=== PATIENT | female | born 1955 | race Caucasian/White ===

== ENCOUNTER 2024-08-09 06:26 | Inpatient (IN) | payer OTHER ==
[~2024-08-09] VITALS: Ht 160 cm; Wt 102.9 kg
[~2024-08-09 06:26] MED LIST: GLIP5TAB21 PO; LEVO25TA6 PO; LISI20TA56 PO; METO25TA93 PO; ROSU20TA14 PO
[2024-08-09] MEDS: PROPOFOL 200 ML IV ONE (06:36)
[2024-08-09] MEDS: TRANEXAMIC ACID 20 ML ONE (06:36)
[2024-08-09] MEDS: levoFLOXacin 500MG 100 ML IV ONE (06:37)
[2024-08-09] MEDS: ceFAZolin 2 GM/D5W100ml 100 ML IV ONE (07:00)
--- NOTE | 2024-08-09 07:12 | DVHHP2 ---
Admitting Diagnosis: lumbar spinal stenosis History of Present Illness Home Meds Reported Medications Metoprolol Succinate (Metoprolol Succinate Er) 25 Mg Tab, 25 MG PO DAILY, TAB 08/03/24 Glipizide (Glipizide) 5 Mg Tab, 5 MG PO BID, TAB 08/03/24 Rosuvastatin Calcium (Crestor) 20 Mg Tab, 20 MG PO DAILY, TAB 08/03/24 Levothyroxine Sodium (Levothyroxine Sodium) 25 Mcg Tab, 50 MCG PO DAILY, TAB 08/03/24 Lisinopril (Lisinopril) 20 Mg Tab, 20 MG PO DAILY, TAB 08/03/24 Timing/Duration of Neck Pain: Getting worse, Changing over time Quality of Neck Pain: Aching, Burning, Cramping, Dullness Timing/Duration of Back Pain: Getting worse, Changing over time Quality of Back Pain: Aching, Burning, Cramping Back Pain Location: Lumbar spine Back Pain Radiation: Buttocks Associated Symptoms of Back Pa: Muscle spasms, Numbness in feet, Tingling in legs, Tingling in feet Review of Systems Constitutional: No symptom reported Ears, Nose, & Throat: No symptom reported Eyes: No symptom reported Pulmonary/Respiratory: No symptom reported Cardiovascular: No symptom reported Gastrointestinal: No symptom reported Genitourinary: No symptom reported Musculoskeletal: Muscle stiffness, Muscle atrophy Skin: No symptom reported Psychiatric: No symptom reported Endocrine: No symptom reported Assessment/Plan Primary Diagnosis lumbar spinal stenosis with neurogenic claudication Plan admit for elective lumbar spine surgery Plan discussed with: Patient DIANNA WHITTINGTON MD Aug 09, 2024 07:12
[2024-08-09] MEDS ORDERED: MIDAZOLAM HCL 2MG/2ML 2ml VIAL (1mg/ml) ONE (07:17)
[2024-08-09] MEDS ORDERED: fentaNYL CITRATE 100 MCG/2 ML VL ONE (07:17)
[2024-08-09] MEDS ORDERED: MEPERIDINE HCL (50 MG/ML) 1 ML VIAL ONE (07:18)
[2024-08-09] MEDS ORDERED: PROPOFOL 10 MG/ML 20 ML IV ONE ×2 (07:37)
[2024-08-09] MEDS: LIDOCAINE W/ EPINEPHRINE 1% 20ML VIAL ONE (08:56)
[2024-08-09] MEDS ORDERED: MORPHINE SULFATE 4 MG/ML SYR/VIAL IV PRN (09:15)
[2024-08-09] MEDS ORDERED: MIDAZOLAM HCL 2MG/2ML 2ml VIAL (1mg/ml) IV PRN (09:15)
[2024-08-09] MEDS ORDERED: hydrALAZINE HCL 20 MG/ML VL IV PRN (09:15)
[2024-08-09] MEDS: ONDANSETRON HCL 4 MG/2 ML VIAL IV ONE (09:15)
[2024-08-09] MEDS ORDERED: ePHEDrine SULFATE 50 MG/ML AMP IV PRN (09:15)
[2024-08-09] MEDS ORDERED: SUGAMMADEX 200mg/2ml Vial (100MG/ML) IV ONE (10:29)
[2024-08-09] MEDS ORDERED: ACETAMINOPHEN 325 MG TAB PO PRN (10:30)
[2024-08-09] MEDS ORDERED: NITROGLYCERIN 0.4 MG SL TAB SL PRN (10:30)
[2024-08-09] MEDS ORDERED: MORPHINE SULFATE INJ 2 MG/ml SYRG IV PRN (10:30)
[2024-08-09] MEDS ORDERED: ONDANSETRON HCL 4 MG/2 ML VIAL IV PRN (10:30)
[2024-08-09] MEDS ORDERED: D5W/SOD CHLO 0.9% 1,000 ML IV SCH (10:30)
--- NOTE | 2024-08-09 10:30 | DVHOP2 ---
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 These include but are not limited to complications of anesthesia, postoperative infection, incomplete relief of symptoms, recurrence of symptoms, damage to blood vessels, nerves and tendons, deep venous thrombosis, pulmonary embolism and possible need for repeat surgery in the future. Name of Procedure Performed see detailed note Procedure Details Procedure Details: Pre-op Diagnosis: Lumbar Degenerative Disk Disease and Lumbar Spinal Stenosis causing Incapacitating back pain, radiculopathy and progressive neurologic deficit Post-op Diagnosis: Lumbar Degenerative Disk Disease and Lumbar Spinal Stenosis causing Incapacitating back pain, radiculopathy and progressive neurologic deficit Procedure: Lumbar 5 laminectomy with Lumbar 5 foraminotomies and facetectomies to decompress central canal and Lumbar 5 nerve roots Lumbar 4 laminectomy with Lumbar 4 foraminotomies and facetectomies to decompress central canal and Lumbar 4 nerve roots Lumbar 3 laminectomy with Lumbar 3 foraminotomies and facetectomies to decompress central canal and Lumbar 4 nerve roots lumbar 4 to 5 posterior spinal interbody fusion with PEEK cage lumbar 3 to 5 posterior spinal intertransverse fusion with bone graft Lumbar 3 to 5 posterior spinal instrumentation with pedicle screws Local Bone Autograft For Fusion Allograft Bone Substitute (Bacterin) to augment Fusion Use of Demineralized Bone Matrix to Augment Fusion Microscope For Microdissection Surgeon: Brady Pineda MD Assist: APRYL Cha Anesthesia: General Fluids and EBL: See anesthesia note Patient was seen in the Pre Anesthesia Care Unit (PACU) and the operative site was initialed by me. All questions were answered to the patients satisfaction and chart reviewed. The patient was taken to the operative room where pre- operative antibiotics were given 30 minutes prior to incision. General anesthesia was induced and neuro-monitoring leads placed. George catheter was placed. The patient was turned prone onto the [facility] spinal table. While positioning, I made sure that the belly was free to allow proper expansion of the lungs. The hips were extended and all bony prominences padded. The shoulders were abducted 80 degree and the elbows flexed 100 degrees with no tension on the brachial plexus. I check the foot arterial pulses and they were palpable. The patient was prepped and draped and time out was taken at this time per usual protocol. At this time, the C-arm fluoroscope was brought in and was used to dustin the incision borders proximally and distally. Using a Number 10 Blade, an incision was made extending it proximally and distally per C arm dustin from the posterior spinous process of lumbar 4,5 down to the lumbo-dorsal fascia. All bleeding was controlled with electrocautery. Self-retaining retractors were placed. Electrocautery was then used to take down the lumbo-d orsal fascia, to free the muscle off the bone bilaterally. A Oliver retractor was placed over the posterior spinous process proximally and a lateral C-arm fluoroscope image was taken to insure we were at the correct level. Next, using bovie electro cautery, The deep fascia laterally to the facet joints was removed to expose the transverse processes of lumbar 3, 4 and 5 while taking care to avoid injuring the facet capsule at the proximal end of the incision. Next, the microscope was bought in for visualization and using a Luxell rongeur, the posterior spinous process of lumbar 3 and 4 and 5 bone were removed and the bone was saved for use as local autograft. I used alternating Kerison 2 mm and 3 mm rongeurs to perform central laminectomies lumbar 5 and 4 and 3 to decompress the central canal. Next using alternating Kerison 2mm and 3 mm rongeurs, the superior articular facets of lumbar 3, 4 and 5 were removed bilaterally to decompress the lateral recess (facetectomies) and then extended proximally to decompress the foramen bilaterally (foraminotomies). I used a ball tipped nerve probed to insure that the respective nerve roots were able to be mobilized 5mm in each direction were unimpeded in the lateral recess and foramen. Next I carefully inspected the dura to make sure no durotomy was visible and it was not. I retracted the right lumbar 5 nerve medially and used increasing size ilya until the proper size prepared and then inserted a [id number] PEEK cage in to the disc space at L4/5 using C arm fluoroscopy. I covered the exposed dura with gelfoam soaked in thrombin and the microscope was wheeled away from the operative filed. The C-arm fluoroscope was brought in and perfect AP views of the lumbar 4 and 5 pedicles were obtained. I placed bilateral pedicle screws at these levels by: using a Lenke awl to make a pilot fuel engineer hole, then a ball tip robe to make sure there was no pedicle breach, then a tap to prepare the track and a 6.5 mm diameter 45 mm length pedicle screw was placed bilaterally. This step to place bilateral pedicle screws was repeated up to the lumbar 3, 4 and 5 level. Next, the c-arm fluoroscope took an AP and lateral x-ray to ensure proper placement of the pedicle screws. Next, the neuro-stimulation probe was placed over the tip of each screw and each screw stimulated only after a current greater than 10 mA was delivered to the screw. Next , I took a Midas Joel Drill to decorticate the transverse process which were exposed and local bone graft, Bacterin allograft bone substitute and Demineralized bone matrix were placed along the inter transverse process intervals bilaterally (the fusion bed). Next a curved andrew sized to fit the pedicle screw interval was placed and secured to each pedicle screw using set screws, The set screws were tightened using a torque screwdriver (set to 10 N*M torque) to secure the andrew to the pedicle screws bilaterally. Final AP and lateral C arm fluoroscopic films were taken at this time. Next a 10 Ukrainian diameter Hemovac drain was laced deep to the lumbo-dorsal fascia. The lumbo-dorsal fascia was closed with interrupted 0- Vicry sutures. The subcutaneous tissue was closed with interrupted 2-0 Vicryl sutures. The skin was closed with running 2-0 nylon suture. Sterile dressings were place. The pt. was turned supine onto the stretcher, extubated and taken to the recovery room in stable condition. At the end of the case a TLSO brace was placed as well as an external bone stimulator. Condition Stable Disposition Still a Patient BRADY PINEDA MD Aug 09, 2024 10:30
[2024-08-09 11:15] VITALS: O2SAT 100
[2024-08-09] MEDS: HYDROmorphone HCL 2 MG/ML VL/or syr IV PRN (11:35)
--- NOTE | 2024-08-09 12:11 | DVH ---
C-ARM FLUOROSCOPY: PROCEDURE: Lumbar spine ORIF FLUOROSCOPY TIME: 156.2 seconds DAP: 117.1 mgy FINDINGS: Spot intraoperative C arm radiographs demonstrating lumbar spine ORIF. IMPRESSION: Please refer to surgical report for detailed findings.
--- NOTE | 2024-08-09 13:28 | DVH ---
C-ARM FLUOROSCOPY: PROCEDURE: Lumbar spine ORIF FLUOROSCOPY TIME: 156.2 seconds DAP: 117.1 mgy FINDINGS: Spot intraoperative C arm radiographs demonstrating lumbar spine decompression. IMPRESSION: Please refer to surgical report for detailed findings.
[2024-08-09 14:26] VITALS: BP 88/52; PULSE 66; RESP 18; TEMP 97.7; O2SAT 98
[2024-08-09] MEDS: SODIUM CHLORIDE 0.9% 1,000 ML IV SCH (15:26)
[2024-08-09] MEDS: ceFAZolin 1GM/50ML 50 ML IV SCH (15:26)
[2024-08-09] MEDS: CYCLOBENZAPRINE HCL 10 MG TAB PO SCH (15:26)
[2024-08-09 17:00] VITALS: BP 129/48; PULSE 67; RESP 17; TEMP 97.9; O2SAT 93
[2024-08-09 20:30] VITALS: PULSE 73; PULSE 82; RESP 18; O2SAT 97
[2024-08-09] MEDS: DOCUSATE SOD 100 MG CAP PO SCH (21:59)
[2024-08-09 22:00] VITALS: BP 113/71; PULSE 73; RESP 18; TEMP 98.1; O2SAT 97
[2024-08-09] MEDS: HYDROcodone-ACET 10/325MG TAB PO PRN (23:53)
[2024-08-10] VITALS (8 sets, daily range): BP systolic 91–121; BP diastolic 40–58; PULSE 63–91; RESP 18–20; TEMP 97.7–98.2; O2SAT 94–98
--- NOTE | 2024-08-10 14:37 | DVHINCON2 ---
Date Seen: Aug 10, 2024 Referring Physician Orthopedic spine surgery. Reason for Consultation Medical management. History of Present Illness 69-year-old female with known history of diabetes mellitus type 2, hypertension, dyslipidemia, hypothyroidism, lumbar spine stenosis with a claudication symptoms worsening for last two years initially was brought in by orthopedic spine surgery for elective surgery for lumbar spine stenosis status post L3-4-5 lumbar decompression and fusion surgery. Patient was currently complaining of 7/10 pain in the lower back. Patient was denies any chest pain shortness of breath headache blurry vision. Denies any fevers chills, hematemesis hematochezia melena dysuria hematuria. Past Medical History Diabetes mellitus type 2 Hypertension Dyslipidemia Hypothyroidism Lumbar spine stenosis Past Surgical History Lumbar spine stenosis status post L3-4-5 lumbar spine decompression and fusion surgery. Family History: Cerebrovascular accident (CVA) G8 MOTHER Allergies: Coded Allergies: NO KNOWN ALLERGIES (Unverified , 08/03/24) Home Meds Reported Medications Metoprolol Succinate (Metoprolol Succinate Er) 25 Mg Tab, 25 MG PO DAILY, TAB 08/03/24 Glipizide (Glipizide) 5 Mg Tab, 5 MG PO BID, TAB 08/03/24 Rosuvastatin Calcium (Crestor) 20 Mg Tab, 20 MG PO DAILY, TAB 08/03/24 Levothyroxine Sodium (Levothyroxine Sodium) 25 Mcg Tab, 50 MCG PO DAILY, TAB 08/03/24 Lisinopril (Lisinopril) 20 Mg Tab, 20 MG PO DAILY, TAB 08/03/24 Current Medications Current Medications Medications (Trade) Dose Ordered Sig/Erin Route PRN Reason Start Time Stop Time Status Last Admin Docusate Sodium (Colace Capsule) 100 mg BID PO 08/09/24 22:00 08/10/24 11:18 Review of Systems Twelve review of system were negative except mentioned above. Vital Signs Vital Signs Date Time Temp Pulse Resp B/P (MAP) Pulse Ox O2 Delivery O2 Flow Rate FiO2 08/10/24 08:20 68 18 98 Nasal Cannula* 2 28 08/10/24 08:00 97.9 97/44 (61) 97.9 91/40 (57) Labs/Diagnostic Data Labs Test 08/09/24 11:31 Range/Units POC Glucose 175 H 70-106 mg/dl Assessment 69-year-old female with a known history of diabetes mellitus type 2, hypertension, dyslipidemia, hypothyroidism, chronic lumbar back pain with a lumbar spine stenosis, status post L3-4-5 lumbar spine decompression and fusion surgery postop day one. 1 1. Diabetes mellitus type 2 2. Hypotension 3. Dyslipidemia 4. Hypothyroidism 5. Lumbar spine stenosis with a lumbar claudication status post L3-4-5 lumbar spine decompression and fusion surgery. Postop day 1 -continue pain meds as needed, physical therapy evaluation and treatment, DVT GI prophylaxis. Plan discussed with: Patient Date of Service: Aug 10, 2024 Billing Provider: CARSON LE MD Common Visit Codes: NOT BILLABLE CARSON LE MD Aug 10, 2024 14:37
[2024-08-10] MEDS: MORPHINE SULFATE INJ 2 MG/ml SYRG IV PRN (23:38)
[2024-08-11] VITALS (9 sets, daily range): BP systolic 95–151; BP diastolic 40–59; PULSE 78–104; RESP 12–18; TEMP 98.2–99; O2SAT 87–98
--- NOTE | 2024-08-11 12:08 | DVHDS2 ---
Discharge Summary Date of Admission Aug 09, 2024 at 10:23 Date of Discharge: Aug 11, 2024 Labs/Diagnostic Data: Laboratory Results Test 08/09/24 11:31 POC Glucose 175 mg/dl (70-106) Brief Hx & Hospital Course: 69-year-old female with a known history of diabetes mellitus type 2, hypertension, dyslipidemia, hypothyroidism, chronic lumbar back pain with a lumbar spine stenosis, status post L3-4-5 lumbar spine decompression and fusion surgery postop day 2. Patient does have known history of diabetes mellitus type 2 and hypertension. Patient walked few steps with physical therapy [facility]. Patient is still has a do lumbar drains. Once cleared by orthopedic spine surgery patient can be [facility]. Condition at Discharge: Stable Final Diagnosis/Problems List 69-year-old female with a known history of diabetes mellitus type 2, hypertension, dyslipidemia, hypothyroidism, chronic lumbar back pain with a lumbar spine stenosis, status post L3-4-5 lumbar spine decompression and fusion surgery postop day 2. 1. Diabetes mellitus type 2 2. Hypertension 3. Dyslipidemia 4. Hypothyroidism 5. Lumbar spine stenosis with a lumbar claudication status post L3-4-5 lumbar spine decompression and fusion surgery. Postop day 1 Discharge Disposition: [facility] Discharge Will this Physician continue t: No Discharge Instruct/Medications Diet: Cardiac 2g Na,low cholest Diet comment: 200 ADA DIET Activity: See Comment Activity comment: TOLERATED Follow Up/Referral: F/U WITH PCP AND SPINE SYRGERY IN 1-2 WEEKS UPON DISCHARGE FROM SNF Medications: RECONCILED Discharge Statement: "Patient was advised to return to the ER or call 911 if any headaches, diz ziness, shortness of breath, chest pain, abdominal pain, bleeding, fevers, or worsening of medical condition. Patient was counseled about treatment plan, medications, possible side effects, patientverbalized understanding. All questions were answered to the best of my ability. This discharge took greater then 30 minutes in planning, reviewing documentation, counseling the patient, and discussing with other team members." ASSESSMENT ASSESSMENT Assessment 69-year-old female with a known history of diabetes mellitus type 2, hypertension, dyslipidemia, hypothyroidism, chronic lumbar back pain with a lumbar spine stenosis, status post L3-4-5 lumbar spine decompression and fusion surgery postop day one. 1 1. Diabetes mellitus type 2 2. Hypotension 3. Dyslipidemia 4. Hypothyroidism 5. Lumbar spine stenosis with a lumbar claudication status post L3-4-5 lumbar spine decompression and fusion surgery. Postop day 1 Date of Service: Aug 11, 2024 Billing Provider: CARSON LE MD Common Visit Codes: NOT BILLABLE CARSON LE MD Aug 11, 2024 12:08
[2024-08-12] VITALS (9 sets, daily range): BP systolic 100–150; BP diastolic 30–78; PULSE 19–101; RESP 17–19; TEMP 97.9–99.3; O2SAT 92–98
[2024-08-13] VITALS (8 sets, daily range): BP systolic 102–135; BP diastolic 37–66; PULSE 76–92; RESP 16–19; TEMP 98.1–98.9; O2SAT 92–98
[2024-08-14 01:00] VITALS: BP 127/92; PULSE 82; RESP 17; TEMP 98; O2SAT 94
[2024-08-14 05:00] VITALS: BP 121/70; PULSE 93; RESP 20; TEMP 98; O2SAT 93
[2024-08-14 09:00] VITALS: BP 116/51; PULSE 54; RESP 20; TEMP 98.5; O2SAT 94
== END 2024-08-14 13:50 | DRG 428 ==
LOC: SUR 06:26 → TELE 10:23 → TELE-EAST 14:24 → EAST 08-13 16:44
PROVIDERS: ADMIT Orthopaedic Surgery; ATTEND Internal Medicine
PROC: 0SG10AJ Fusion of 2 or more Lumbar Vertebral Joints with Interbody Fusion Device, Posterior Approach, Anterior Column, Open Approach (ICD-10-PCS; 2024-08-09)
PROC: 01NB0ZZ Release Lumbar Nerve, Open Approach (ICD-10-PCS; 2024-08-09)
PROC: 00NY0ZZ Release Lumbar Spinal Cord, Open Approach (ICD-10-PCS; 2024-08-09)
PROC: 4A11X4G Monitoring of Peripheral Nervous Electrical Activity, Intraoperative, External Approach (ICD-10-PCS; 2024-08-09)
PROC: 0SG0071 Fusion of Lumbar Vertebral Joint with Autologous Tissue Substitute, Posterior Approach, Posterior Column, Open Approach (ICD-10-PCS; principal; 2024-08-09 07:19)
DX: M48.062 Spinal stenosis, lumbar region with neurogenic claudication (principal); E11.51 Type 2 diabetes mellitus with diabetic peripheral angiopathy without gangrene; E78.5 Hyperlipidemia, unspecified; E03.9 Hypothyroidism, unspecified; I10 Essential (primary) hypertension; M51.16 Intervertebral disc disorders with radiculopathy, lumbar region; I95.9 Hypotension, unspecified; Z82.3 Family history of stroke; Z79.899 Other long term (current) drug therapy
CPT/HCPCS: 72100; 76000; 82962; 86850; 86900; 86901; 97110; 97116; 97163; 97530; G0378; J1956; J2250; J2704

== ENCOUNTER 2024-11-09 08:34 | Emergency (ER) | payer MEDICARE, OTHER ==
[~2024-11-09] VITALS: Ht 160 cm; Wt 93.8 kg
--- NOTE | 2024-11-09 09:27 | ED.PDOC ---
History of Present Illness HPI Comments 69F presents to the ER w/ no prior Hx associated to the c/c of Vaginal Bleeding. Pt reports on having "heavy" vaginal bleeding which started this morning. Pt assumes the vaginal bleeding is caused from her lower Back Sx which was on 08/09/24. PMHx of HTN, High Lipids, and DM. SHx of Tonsillectomy, Left Hip Sx and Thyroidectomy. Denies chills, fever, N/V/D, SOB, CP or no other associated symptom's, modifiers, recent injuries or sick contact at this time. Chief Complaint: Vaginal Bleed Time Seen by MD: 08:55 Reviewed Notes: Nurses Notes, Medications, Allergies Allergies: Coded Allergies: Amoxicillin (Verified Allergy, Unknown, 11/09/24) Home Meds Reported Medications Metoprolol Succinate (Metoprolol Succinate Er) 25 Mg Tab, 25 MG PO DAILY, TAB 08/03/24 Glipizide (Glipizide) 5 Mg Tab, 5 MG PO BID, TAB 08/03/24 Rosuvastatin Calcium (Crestor) 20 Mg Tab, 20 MG PO DAILY, TAB 08/03/24 Levothyroxine Sodium (Levothyroxine Sodium) 25 Mcg Tab, 50 MCG PO DAILY, TAB 08/03/24 Lisinopril (Lisinopril) 20 Mg Tab, 20 MG PO DAILY, TAB 08/03/24 Information Source: Patient Mode of Arrival: Ambulatory Severity: Moderate Timing: Hours Duration: Since onset, Hours Prehospital treatment: None Past Medical History PAST MEDICAL HISTORY: DM, High Lipids, HTN Surgical History: Thyroidectomy, Tonsillectomy Surgical History (Other): Lower Back Sx-08/09/24, Left Hip Sx MEDICARE COMPLIANCE AUDITOR History: No Pertinent MEDICARE COMPLIANCE AUDITOR History Family History Family History: Reviewed,noncontributory to illness, Unknown Social History Smoker: Non-Smoker Alcohol: Denies ETOH Use Drugs: Denies Drug Use Lives In: Home Constitutional: denies: chills, diaphoresis, fatigue, fever, malaise, sweats, weakness, others EENTM: denies: blurred vision, double vision, ear bleeding, ear discharge, ear drainage, ear pain, ear ringing, eye pain, eye redness, hearing loss, mouth pain, mouth swelling, nasal discharge, nose bleeding, nose congestion, nose pain, photophobia, tearing, throat pain, throat swelling, voice changes, others Respiratory: denies: cough, hemoptysis, orthopnea, SOB at rest, shortness of breath, SOB with excertion, stridor, wheezing, others Cardiovascular: denies: chest pain, dizzy spells, diaphoresis, Dyspnea on exertion, edema, irregular heart beat, left arm pain, lightheadedness, palpitations, PND, syncope, others Gastrointestinal: denies: abdomen distended, abdominal pain, blood streaked bowels, constipated, diarrhea, dysphagia, difficulty swallowing, hematemesis, melena, nausea, poor appetite, poor fluid intake, rectal bleeding, rectal pain, vomiting, others Genitourinary: reports: abnormal vagina bleeding; denies: burning, dyspareunia, dysuria, flank pain, frequency, hematuria, incontinence, pain, , vagina discharge, urgency, others Neurological: denies: dizziness, fainting, headache, left sided numbness, left sided weakness, numbness, paresthesia, pre-existing deficit, right sided numbness, right sided weakness, seizure, speech problems, tingling, tremors, weakness, others Musculoskeletal: denies: back pain, gout, joint pain, joint swelling, muscle pain, muscle stiffness, neck pain, others Integumetry: denies: bruises, change in color, change in hair/nails, dryness, laceration, lesions, lumps, rash, wounds, others Allergic/Immunocompromised: denies: Difficulty Healing, Frequent Infections, Hives, Itching, others Hematologic/Lymphatic: denies: anemia, blood clots, easy bleeding, easy bruising, swollen glands, others Endocrine: denies: excessive hunger, excessive sweating, excessive thirst, excessive urination, flushing, intolerance to cold, intolerance to heat, unexplained weight gain, unexplained weight loss, others Psychiatric: denies: anxiety, bipolar disorder, depression, hopeless, panic disorder, schizophrenia, sleepless, suicidal, others All Other Systems: Reviewed and Negative Physical Exam General Appearance: Moderate Distress, Normal HEENT: Normal ENT Inspection, Pharynx Normal, TMs Normal Neck: Full Range of Motion, Non-Tender, Normal, Normal Inspection Respiratory: Chest Non-Tender, Lungs Clear, No Accessory Muscle Use, No Respiratory Distress, Normal Breath Sounds Cardiovascular: No Edema, No JVD, No Murmur, No Gallop, Normal Peripheral Pulses, Regular Rate/Rhythm Breast Exam: Deferred Gastrointestinal: No Organomegaly, Non Tender, No Pulsatile Mass, Normal Bowel Sounds, Soft Genitalia: Deferred Pelvic: Deferred Rectal: Deferred Extremities: No calf tenderness, Normal capillary refill, Normal inspection, Normal range of motion, Non-tender, No pedal edema Musculoskeletal : Apperance: Normal Neurologic: Alert, spanish translator II-XII nml as Tested, No Motor Deficits, Normal Affect, Normal Mood, No Sensory Deficits Cerebellar Function: Normal Reflexes: Normal Skin: Dry, Normal Color, Warm Peripheral Pulses: 3+ Radial (R), 3+ Radial (L) Lymphatic: No Adenopathy Was a procedure done? Was a procedure done?: No Differential Dx Considerations may include: Anemia Electrolyte imbalance X-Ray, Labs, Meds, VS Vital Signs Date Time Temp Pulse Resp B/P (MAP) Pulse Ox O2 Delivery O2 Flow Rate FiO2 11/09/24 09:22 97.0 100 16 146/74 (98) 95 Lab Test 11/09/24 09:25 11/09/24 09:00 Range/Units White Blood Count 6.1 4.4-10.8 10^3/uL Red Blood Count 4.82 4.0-5.20 10^6/uL Hemoglobin 13.2 12.2-16.2 g/dL Hematocrit 40.5 36.0-46.0 % Mean Corpuscular Volume 84.0 80.0-100.0 fL Mean Corpuscular Hemoglobin 27.3 L 28.0-32.0 pg Mean Corpuscular Hemoglobin Concent 32.5 32.0-36.0 g/dL Red Cell Distribution Width 15.1 H 11.8-14.3 % Platelet Count 266 140-450 10^3/uL Mean Platelet Volume 8.5 6.9-10.8 fL Neutrophils (%) (Auto) 61.5 37.0-80.0 % Lymphocytes (%) (Auto) 23.1 10.0-50.0 % Monocytes (%) (Auto) 10.9 0.0-12.0 % Eosinophils (%) (Auto) 3.3 0.0-7.0 % Basophils (%) (Auto) 1.2 0.0-2.0 % Neutrophils # (Auto) 3.8 1.6-8.6 10 ^3/uL Lymphocytes # (Auto) 1.4 0.4-5.4 10 ^3/uL Monocytes # (Auto) 0.7 0-1.3 10 ^3/uL Eosinophils # (Auto) 0.2 0-0.8 10 ^3/uL Basophils # (Auto) 0.1 0-0.2 10 ^3/uL Nucleated Red Blood Cells 0.1 % Urine Color Light-yellow Yellow Urine Clarity Clear Clear Urine pH 5.0 5.0-9.0 Urine Specific [place] 1.020 1.001-1.035 Urine Protein Trace H Negative Urine Ketones Negative Negative Urine Blood 2+ H Negative /uL Urine Nitrite Negative Negative Urine Bilirubin Negative Negative Urine Urobilinogen Normal Negative mg/dL Urine Leukocyte Esterase 3+ Negative /uL Urine RBC 6 0 - 4 /hpf Urine Microscopic WBC 52 H 0-5 /HPF Urine Squamous Epithelial Cells Few <5 /hpf Urine Bacteria Few H None Seen /hpf Urine Mucus Few None Seen Urine Glucose Normal Normal mg/dL Patient alert. Complaining of vaginal spotting. Possible intracranial changes. Vitals stable. Ambulating. No sign of any distress. No sepsis. No sign of anemia. WBC within normal limits. Urinalysis shows UTI. Ultrasound does not reveal any acute process. Was given prescription of Macrobid antibiotic. Reviewed her history. Explained to the patient. Was told to follow up with her OBGYN. Was told to follow up with her primary care physician. Was told to come back if there is any problem. Time of 1ST Reevaluation: 09:25 Reevaluation 1ST: Improved Patient Education/Counseling: Diagnosis, Treatment, Prognosis Family Education/Counseling: No Family Present Departure 1 Departure Time of Disposition: 11:31 Impression: Primary Impression: Urinary tract infection Qualified Codes: N30.00 - Acute cystitis without hematuria Additional Impression: Vaginal hyperplasia Disposition: HOME / SELF CARE / HOMELESS Condition: Good e-Prescriptions Nitrofurantoin Monohydrate Mac (Macrobid) 100 Mg Cap 100 MG PO BID for 7 Days, #14 CAP Prov: KIMBERLEE WESTFALL MD 11/09/24 Discharged With: Self Critical Care Note Critical Care Time?: No Stability Stability form required: No Heart Score Heart Score: Heart Score Response (Comments) Value History N/A 0 EKG N/A 0 Age N/A 0 Risk Factors N/A 0 Troponin N/A 0 Total 0 I personally scribed for KIMBERLEE WESTFALL MD ([email or web address]) on 11/09/24 at 09:27. Electronically submitted by Suman Dai ([email or web address]). KIMBERLEE WESTFALL MD Nov 09, 2024 09:27
[2024-11-09 09:42] LABS: Basophils # (auto) 0.1 10 ^3/uL (0-0.2); Basophils % (auto) 1.2 % (0.0-2.0); Eosinophils # (auto) 0.2 10 ^3/uL (0-0.8); Eosinophils % (auto) 3.3 % (0.0-7.0); Hematocrit 40.5 % (36.0-46.0); Hemoglobin 13.2 g/dL (12.2-16.2); Lymphocytes # (auto) 1.4 10 ^3/uL (0.4-5.4); Lymphocytes % (auto) 23.1 % (10.0-50.0); Mean Corpuscular Hemoglobin 27.3 pg (28.0-32.0); Mean Corpuscular Hgb Conc. 32.5 g/dL (32.0-36.0); Monocytes # (auto) 0.7 10 ^3/uL (0-1.3); Monocytes % (auto) 10.9 % (0.0-12.0); Neutrophils # (auto) 3.8 10 ^3/uL (1.6-8.6); Neutrophils % (auto) 61.5 % (37.0-80.0); Nucleated Red Blood Cells % 0.1 %; Platelet Count (auto) 266 10^3/uL (140-450); Red Blood Cells 4.82 10^6/uL (4.0-5.20); Red Cell Distribution Width 15.1 % (11.8-14.3); White Blood Cell 6.1 10^3/uL (4.4-10.8)
[2024-11-09 09:48] LABS: Urine Bacteria FEW /hpf (None Seen); Urine Blood 2+ /uL (Negative); Urine Clarity Clear (Clear); Urine Color Light-Yellow (Yellow); Urine Mucus FEW (None Seen); Urine Protein, UAD TRACE (Negative); Urine Squamous Epithelial Cell FEW /hpf (<5); Urine Urobilinogen Normal (Negative); Urine WBC 52 /HPF (0-5)
--- NOTE | 2024-11-09 10:30 | DVH ---
INDICATION: POSTMENO BLEEDING TECHNIQUE: Multiple real-time grayscale transabdominal and transvaginal sonographic images along with color and duplex Doppler of the uterus and ovaries were obtained. COMPARISON: None FINDINGS: The uterus measures 7.2 x 3.8 x 3.9 cm. The endometrial stripe measures 1.6 cm. Few cystic spaces are present within the endometrium. Ovaries are not visualized. Nonspecific soft-tissue fullness in the cervix measures 1.6 cm. IMPRESSION: Nonspecific soft-tissue fullness in the cervix measures 1.6 cm. Cervical mass is not completely exclu ded. Clinical correlation advised. Thickened endometrium with cystic spaces. Differential considerations could include endometrial hype rplasia or neoplasm.
[2024-11-09] MEDS ORDERED: NITR-87 PO (11:32)
[2024-11-09 11:54] VITALS: BP 122/71; PULSE 90; RESP 16; TEMP 98.2; O2SAT 95
== END 2024-11-09 12:03 | disposition home or self-care (01) ==
LOC: ER 08:34
DX: N90.69 Other specified hypertrophy of vulva (principal); N39.0 Urinary tract infection, site not specified; I10 Essential (primary) hypertension; E11.9 Type 2 diabetes mellitus without complications; E78.5 Hyperlipidemia, unspecified; Z90.89 Acquired absence of other organs; Z79.84 Long term (current) use of oral hypoglycemic drugs; Z79.890 Hormone replacement therapy; Z79.899 Other long term (current) drug therapy; Z88.1 Allergy status to other antibiotic agents
CPT/HCPCS: 36415; 76830; 76856; 81001; 85025